=== PATIENT | female | born 1975 | race Caucasian/White ===

== ENCOUNTER 2023-04-09 14:24 | Emergency (ER) | payer MEDICAID ==
[~2023-04-09] VITALS: Ht 154.9 cm; Wt 72.6 kg
[2023-04-09] MEDS ORDERED: OFLO5DRO5 LEFT EAR (14:52)
[2023-04-09 14:56] VITALS: BP 120/80; TEMP 98.3; O2SAT 97
[2023-04-09] MEDS ORDERED: NEOM10DR11 LEFT EAR (15:01)
[2023-04-09] MEDS ORDERED: AMOX-430 PO (15:14)
== END 2023-04-09 15:16 | disposition home or self-care (01) ==
LOC: ER 14:31
DX: H66.92 Otitis media, unspecified, left ear (principal); H60.92 Unspecified otitis externa, left ear; Z79.899 Other long term (current) drug therapy